=== PATIENT | female | born 1975 | race Caucasian/White ===

== ENCOUNTER 2022-06-17 07:54 | Day surgery (SDC) | payer BC ==
[2022-06-17] MEDS ORDERED: Lidocaine 2% 5 ML SDV INJECT ONE (07:55)
[2022-06-17] MEDS ORDERED: Propofol 200 MG/20 ML SDV IV ONE (07:55)
[2022-06-17] MEDS ORDERED: Sodium Chloride 0.9% 10 ML Syringe FLUSH PRN (08:00)
[2022-06-17] MEDS: Lactated Ringers 1,000 ML IV SCH (08:58)
== END 2022-06-17 10:23 | disposition home or self-care (01) ==
LOC: FB.SDS 07:54
PROVIDERS: ATTEND Surgery
DX: Z12.11 Encounter for screening for malignant neoplasm of colon (principal); K57.30 Diverticulosis of large intestine without perforation or abscess without bleeding; F17.210 Nicotine dependence, cigarettes, uncomplicated; Z79.899 Other long term (current) drug therapy; Z98.890 Other specified postprocedural states; Z90.710 Acquired absence of both cervix and uterus
CPT/HCPCS: 00812; 45378; J2704; J7120